=== PATIENT | male | born 2000 | race Caucasian/White ===

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

== ENCOUNTER 2019-05-11 14:08 | Emergency (ER) | payer BC, MEDICAID ==
[~2019-05-11] VITALS: Ht 165.1 cm; Wt 57.7 kg
[2019-05-11 14:08] VITALS: BP 118/70
[~2019-05-11 14:08] MED LIST: DULE200A IN; MULT1CHW26 PO; PROT1TAB2 PO; SING10TA32 PO; TUMS500C PO; ZYRT10CA PO
[2019-05-11] MEDS ORDERED: ECON1CRE36 TOP (14:42)
== END 2019-05-11 14:50 | disposition home or self-care (01) ==
LOC: M ED 14:08
DX: B35.4 Tinea corporis (principal)

== ENCOUNTER 2019-07-04 17:45 | Inpatient (IN) | payer BC ==
[~2019-07-04] VITALS: Ht 167.6 cm; Wt 52.5 kg
[~2019-07-04 17:45] MED LIST changes: +ECON1CRE8 TOP
[2019-07-04] MEDS ORDERED: ALBU8.5H PO (18:04)
[2019-07-04 18:54] LABS: HEMATOCRIT 50.8 % (42.0-52.0); HEMOGLOBIN 16.6 g/dl (13.5-17.5); MEAN CORPUSCULAR HEMOGLOBIN 28.9 pg (27.0-33.0); MEAN CORPUSCULAR HGB CONC 32.7 g/dl (32.0-36.5); MEAN CORPUSCULAR VOLUME 88.5 fl (80.0-96.0); PLATELET COUNT, AUTOMATED 238 10^3/uL (150-450); RED BLOOD COUNT 5.74 10^6/uL (4.30-6.10); WHITE BLOOD COUNT 8.6 10^3/uL (4.0-10.0)
[2019-07-04] MEDS ORDERED: AQUAOIN12 TOP (19:02)
[2019-07-04 19:30] LABS: ACETAMINOPHEN LEVEL < 2.0 UG/ML (10.0-30.0); ALBUMIN 4.6 GM/DL (3.2-5.2); ALT/SGPT 14 U/L (12-78); AMPHETAMINES LEVEL URINE NEGATIVE (NEGATIVE); BARBITURATES URINE NEGATIVE (NEGATIVE); BENZODIAZEPINES URINE NEGATIVE (NEGATIVE); BILIRUBIN,DIRECT 0.1 MG/DL (0.0-0.2); BILIRUBIN,TOTAL 0.4 MG/DL (0.2-1.0); BLOOD UREA NITROGEN 11 MG/DL (7-18); CALCIUM LEVEL 9.2 MG/DL (8.5-10.1); CANNABINOIDS URINE POSITIVE (NEGATIVE); CARBON DIOXIDE LEVEL 28 MEQ/L (21-32); CHLORIDE LEVEL 105 MEQ/L (98-107); COCAINE METABOLITE URINE NEGATIVE (NEGATIVE); CREATININE FOR GFR 0.75 MG/DL (0.70-1.30); ETHYL ALCOHOL (ETHANOL) 0.003 % (0.000-0.010); GLUCOSE, FASTING 86 MG/DL (70-100); METHADONE URINE NEGATIVE (NEGATIVE); OPIATES URINE NEGATIVE (NEGATIVE); PHENCYCLIDINE URINE NEGATIVE (NEGATIVE); POTASSIUM SERUM 3.9 MEQ/L (3.5-5.1); SALICYLATE LEVEL < 1.7 MG/DL (5.0-30.0); SODIUM LEVEL 140 MEQ/L (136-145); TOTAL PROTEIN 8.1 GM/DL (6.4-8.2)
[2019-07-04] MEDS: CLOTRIMAZOLE 1% TOPICAL CREAM 30GM TOP SCH (19:30)
[2019-07-04] MEDS ORDERED: MOM 30ML SUSPENSION UDC PO PRN (20:15)
[2019-07-04] MEDS ORDERED: ACETAMINOPHEN TAB 650MG DOSE (2X325MG) PO PRN (20:15)
[2019-07-04] MEDS ORDERED: MAALOX 30 ML SUSP *UDC PO PRN (20:15)
[2019-07-04 21:02] VITALS: BP 118/80
[2019-07-04] MEDS: traZODone 50 MG TAB PO PRN (22:39)
[2019-07-05 06:21] VITALS: BP 144/74
[2019-07-05] MEDS: CLOTRIMAZOLE 1% TOPICAL CREAM 30GM TOP SCH ×3 (09:00→21:50)
--- NOTE | 2019-07-05 10:41 | MHHPEPDOC ---
General Date Of Admission: Jul 04, 2019 Legal Status: 9.39 Chief Complaint "I was just depressed, but I would never actually kill myself." History of Present Illness HISTORY OF THE PRESENT ILLNESS: Patient is a 18 -year-old , male, with no previous psych history who brought in to ED by PD on after pt posted a picture on [employer] with a comment stating he wanted to end his existence causing his sister to text pt's mother who called the police. Pt in the Ed stated "I was just depressed, but I would never actually kill myself." Pt reflected on his life in the ED and stated he's been getting increasingly depressed and that caused him to post "I want to end my fucking existence" on [employer] chat. Per ED, pt's sister continued to reach out to the pt and he continued to state he wanted to . Pt stated he's been feeling depressed lately due to being unemployed and living with his Grandmother. Pt admitted to ongoing relationship problems with his mother that is also affecting his mood and caused him to become upset on day of admission per ED. Pt stated in ED "I am too scared to actually kill myself." Per ED, [facility] stated that pt had said "I would never kill myself while at my grandmother's b/c I wouldn't want her to have to clean up the mess" when they picked him up. Psychiatric Review of Systems Depression (2 or more weeks): depressed mood, feelings of worthlesness, difficulty concentrating, suicidal thoughts Usly (4 or more days of): denies Psychosis: denies PTSD: denies Anxiety: situational anxiety, stressor related anxiety Anxiety/ 6 months or more of: restlessness, keyed up, difficulty concentrating, irritability Past Psychiatric History Previous Psychiatric Diagnosis: denies. Previous Psychiatric Admissions: denies Suicide Attempts: denies Psychiatric Follow-up: denies Psychiatric medications: denies Past Medical History Medical Problems healthy adult Head Injury: No Seizures: No Hospitalizations: No Surgeries: No Family Medical/Psychiatric HX Medical Problems denies Psychiatric Disorders: No Addiction: No Suicide Attemps/Completions: No Addiction History nicotine (daily use), other (utox pos cannabis) Social History Childhood: Born and raised in [place], 2 parents home, 1 older sister. Pt states he has a poor relationship with his mother but a good relationship with his father, sister, and grandmother Abuse/Trauma:denies Current Living Situation: lives with Grandmother in [place] Education: high school grad Employment: unemployed, financially supported by his parents Social Support: Sister, parents, grandmother Legal: denies Marital: single, never , no kids. Mental Status Examination General Appearance: well groomed, appears stated age, hospital scubs/clothing Build: average, other (small) Demeanor: average Eye Contact: average Activity: average, anxious Behavior: cooperative Speech: clear, spontaneous, reg/rate,rhythm,volume, other (has a lisp) Mood: euthymic, angry Mood "I'm fine" Affect: full, congruent, anxious Thought Process: logical/linear, concrete (slightly possibly due to coming across as immature for his age), intact Thought Content (Delusions): none reported, denies SI, HI, AVH Thought Content (Other): none reported, appropriate Thought Content (Aggressive): none reported Perception (Hallucinations): none reported Perception (Other): none reported Cognition (Impairment of): none reported Cognition(Intelligence Est.): average Oriented: Awake, Alert, Oriented times three Insight: fair Judgment: Fair Psychosis: Denies Diagnoses Adjustment d/o with depression and anxiety cannabis use d/o A-FIB/CHADSVASC A-FIB History Current/History of A-Fib/PAF?: No Assessment Pt seen and states he's here b/c he posted "end my fucking existence" and a story on [employer] chat. States he didn't think it would mean suicide and wasn't meaning he was suicide. States he meant he wanted "God" to end his existence like just let him , passive SI. States he doesn't feel like he doesn't have anything to live for like no job or appt but states he doesn't want to . States he more or less post the comment b/c he wanted some form of something to end his pain. He endorses depressed mood. Denies he was looking for attention. States he carries a knife for protection that if he wanted he could use to harm himself but doesn't want to harm himself so he doesn't use it. States he feels depressed occasionally due to situations like yesterday when the cable was out and he didn't realize it was everywhere, thought it was just his. Denies he self harms. Denies he feels needs to start an antidepressant but is open to being referred outpatient therapy as is finding groups therapy beneficial here (did [employer] [employer] yesterday and doesn't want to miss art group today) to help him with his mood and ability to cope with situations he doesn't like. Denies current SI/HI, hallucinations, delusions. Feels safe ehre. Initial Treatment Plan 1. Patient was admitted on a status. 2. Complete history was obtained. 3. With patients permission, family will be contacted and database will be expanded. 4. Patients medication regimen will be reviewed and changed accordingly. 5. Patient will be provided with protected environment. 6. Patient will be treated with individual, group, and milieu therapies. 7. Patient will receive supportive psych-education. 8. Discharge planning will commence immediately. 9. Outpatient follow-up treatment will be strongly recommended. 10. The initial treatment plan will focus initially on: * Depression. * Risk for suicide. 11. monitor safety ESTIMATED LENGTH OF STAY: 3-5 DAYS. TIME SPENT COUNSELING AND COORDINATING INITIAL CARE: 60 minutes. Vital Signs Vital Signs Date Time Temp Pulse Resp B/P (MAP) Pulse Ox O2 Delivery O2 Flow Rate FiO2 07/05/19 08:00 Room Air 07/05/19 06:21 98.8 50 18 144/74 (97) 07/04/19 21:02 97 Laboratory Data 24[facility] Labs Laboratory Tests 2 07/04/19 18:35: Nucleated Red Blood Cells % (auto) 0.0, Anion Gap 7L, Calcium Level 9.2, Total Bilirubin 0.4, Direct Bilirubin 0.1, Aspartate Amino Transf (AST/SGOT) 10, Alanine Aminotransferase (ALT/SGPT) 14, Alkaline Phosphatase 54, Total Protein 8.1, Albumin 4.6, Albumin/Globulin Ratio 1.31, Thyroid Stimulating Hormone (TSH) 1.200, Salicylates Level < 1.7L, Urine Opiates Screen NEGATIVE, Urine Methadone Screen NEGATIVE, Acetaminophen Level < 2.0L, Urine Barbiturates Screen NEGATIVE, Urine Phencyclidine Screen NEGATIVE, Urine Amphetamines Screen NEGATIVE, Urine Benzodiazepines Screen NEGATIVE, Urine Cocaine Metabolite Screen NEGATIVE, Urine Cannabinoids Screen POSITIVEH, Ethyl Alcohol Level 0.003 CBC/BMP Laboratory Tests 07/04/19 18:35 Medications Scheduled PRN Albuterol Sulfate (Albuterol Sulfate Hfa) 8.5 Gm Hfa.aer.ad, 2 PUFF PO Q4H PRN for SOB/WHEEZING, (Reported) Petrolatum,White (Aquaphor with Natural Healing) 50 Gm Oint...g., 1 APPLIC TOP DAILY PRN for ITCHING, (Reported) APPLY TO GROIN Allergies Coded Allergies: No Known Allergies (Verified , 07/04/19) ANDREA NAVAS DO Jul 05, 2019 10:16 am
--- NOTE | 2019-07-05 13:32 | HPEPDOC ---
General Date of Admission Jul 04, 2019 at 20:14 Date of Service: Jul 05, 2019 Chief Complaint The patient is a 18-year-old male admitted with a reason for visit of Unspecified Depressive D/O. Source: Patient Exam Limitations: No limitations History of Present Illness 18 yo man with a history of mild asthma, cigar smoking, and recent 2 month history jock itch for which he was prescribed a topical antifungal but could not afford the topical cream and has managed it with regular body lotion with interval worsening of the ringworm, who is admitted to the [facility] for depressed mood after he mentioned wanting to end his life on snapchat and confirmed it to his sister. He reports being frustrated with living with his grandmother and not being able to get a job. He reports no actual plan or "real intention" to end his life but is quite depressed by his current situation. In the ED, he was hemodynamically stable with normal CBC, BMP and tox was positive for MJ. Medicine is now being consulted for medical evaluation. Home Medications Scheduled PRN Albuterol Sulfate (Albuterol Sulfate Hfa) 8.5 Gm Hfa.aer.ad, 2 PUFF PO Q4H PRN for SOB/WHEEZING, (Reported) Petrolatum,White (Aquaphor with Natural Healing) 50 Gm Oint...g., 1 APPLIC TOP DAILY PRN for ITCHING, (Reported) APPLY TO GROIN Allergies Coded Allergies: No Known Allergies (Verified , 07/04/19) Past Medical History Medical History cigar smoker for 1 year and episodic cigarette smoker mild asthma jock itch - ongoing depression Family History Significant Family History: No pertinent family hx Social History * Smoker: current smoker Alcohol: Denies Drugs: marijuana Recent Travel/Sick Contacts: Denies: Recent travel, Recent sick contacts Psychosocial History: Decreased mood, Depression, Suicidal thoughts Lives with his grandmother, is unemployed A-FIB/CHADSVASC A-FIB History Current/History of A-Fib/PAF?: No Current PO Anticoag Therapy: No Age/Risk Factor Scoring CHADSVASC: CHADSVASC Response (Comments) Value Age Risk Factor Age < 65 years old 0 Gender Risk Factor Male 0 Hx of CHF No 0 Hx of HTN No 0 Hx of Stroke/TIA/or VTE No 0 Hx of Diabetes No 0 Hx of Vascular Disease No 0 Total 0 Treatment Treatment ordered: NONE Reason Anticoagulant not given: Not indicated/[id number] Review of Systems Constitutional: Denies: Chills, Fever, Night Sweats Eyes: Denies: Pain, Vision change ENT: Denies: Head Aches, Ear Pain, Dysphagia Skin: Reports: Rash (has itchy rash on L medial thigg); Denies: Lesions, Breakdown Pulmonary: Denies: Dyspnea, Cough Cardiovascular: Denies: Chest Pain, Palpitations, Orthopnea, Paroxysmal Noc. Dyspnea, Lt Headedness Gastrointestinal: Denies: Nausea, Vomiting, Abdominal Pain, Diarrhea Genitourinary: Denies: Dysuria, Frequency, Incontinence, Retention Hematologic: Denies: Bruising, Bleeding Excessively Endocrine: Denies: Polydipsia, Polyphagia, Polyuria, Heat Intolerance, Cold Intolerance, Other Endocrine Sx Musculoskeletal: Denies: Neck Pain, Back Pain, Joint Pain, Muscle Pain, Spasms Neurological: Denies: Weakness, Numbness, Change in speech, Confusion Psych: Reports: Depression Physical Examination Eye Exam: Positive: PERRLA, Conjunctiva & lids normal, EOMI; Negative: Sclera icteric ENT Exam: Positive: Atraumatic, Mucous membr. moist/pink, Other ENT (poor dentition) Neck Exam: Positive: Supple; Negative: JVD, thyromegaly Chest Exam: Positive: Clear to auscultation, Normal air movement Heart Exam: Positive: Rate Normal, Regular Rhythm, Normal S1, Normal S2; Negative: Murmurs, Rubs Abdomen Exam: Positive: Normal bowel sounds, Soft; Negative: Tenderness, Hepatospenomegaly Extremity Exam: Positive: Normal pulses; Negative: Clubbing, Cyanosis, Edema Skin Exam: Positive: Rash (large erythematous round ringworm with raised border on medial L thigh proximal to his scrotum, with clear borders.) Neuro Exam: Positive: Normal Gait, Normal Speech, Cranial Nerves 3-12 NL, Reflexes 2+ Psych Exam: Positive: Mental status NL, Mood NL, Oriented x 3 Vital Signs Vital Signs Date Time Temp Pulse Resp B/P (MAP) Pulse Ox O2 Delivery O2 Flow Rate FiO2 07/05/19 08:00 Room Air 07/05/19 06:21 98.8 50 18 144/74 (97) 07/04/19 21:02 97 Laboratory Data Labs 24H Laboratory Tests 2 07/04/19 18:35: Nucleated Red Blood Cells % (auto) 0.0, Anion Gap 7L, Calcium Level 9.2, Total Bilirubin 0.4, Direct Bilirubin 0.1, Aspartate Amino Transf (AST/SGOT) 10, Alanine Aminotransferase (ALT/SGPT) 14, Alkaline Phosphatase 54, Total Protein 8.1, Albumin 4.6, Albumin/Globulin Ratio 1.31, Thyroid Stimulating Hormone (TSH) 1.200, Salicylates Level < 1.7L, Urine Opiates Screen NEGATIVE, Urine Methadone Screen NEGATIVE, Acetaminophen Level < 2.0L, Urine Barbiturates Screen NEGATIVE, Urine Phencyclidine Screen NEGATIVE, Urine Amphetamines Screen NEGATIVE, Urine Benzodiazepines Screen NEGATIVE, Urine Cocaine Metabolite Screen NEGATIVE, Urine Cannabinoids Screen POSITIVEH, Ethyl Alcohol Level 0.003 CBC/BMP Laboratory Tests 07/04/19 18:35 Assessment/Plan Very pleasant 18 yo man with ongoing psychosocial stressors with difficulty secu ring a job and independent housing, with ongoing tinea cruris who is admitted to the [facility] after expressing thought of suicide on social media. Tinea cruris: -Was already placed on clotrimazole cream BID Asthma: no evidence of ongoing exacerbation or symptoms -may offer PRN albuterol inhaler as indicated for wheezing or SOB Depression with suicidality: -Appears to already be doing much better, management per psychiatry team Medicine will sign off at this time. Please reconsult for any medical concerns. Plan / VTE VTE Prophylaxis Ordered?: No VTE Exclusion Mechanical Proph: Low Risk for VTE VTE Exclusion Pharmacological: At Low Risk for VTE RIRI PEREZ MD Jul 05, 2019 13:32
[2019-07-05 16:04] VITALS: BP 117/58
[2019-07-05] MEDS: traZODone 50 MG TAB PO PRN (21:50)
[2019-07-05] MEDS ORDERED: MIRTAZAPINE 15 MG TAB PO ONE (23:20)
[2019-07-06 06:45] VITALS: BP 114/57
[2019-07-06] MEDS: CLOTRIMAZOLE 1% TOPICAL CREAM 30GM TOP SCH ×2 (09:21→21:30)
--- NOTE | 2019-07-06 10:07 | MHIPNPDOC ---
[facility] Progress Note Progress Note DATE OF SERVICE: 07/06/19 HISTORY: Patient is a 18 -year-old , male, with no previous psych history who brought in to ED by PD on after pt posted a picture on [employer] chat with a comment stating he wanted to end his existence causing his sister to text pt's mother who called the police. Pt in the Ed stated "I was just depressed, but I would never actually kill myself." Pt reflected on his life in the ED and stated he's been getting increasingly depressed and that caused him to post "I want to end my fucking existence" on [employer] chat. Per ED, pt's sister continued to reach out to the pt and he continued to state he wanted to . Pt stated he's been feeling depressed lately due to being unemployed and living with his Grandmother. Pt admitted to ongoing relationship problems with his mother that is also affecting his mood and caused him to become upset on day of admission per ED. Pt stated in ED "I am too scared to actually kill myself." Per ED, [facility] stated that pt had said "I would never kill myself while at my grandmother's b/c I wouldn't want her to have to clean up the mess" when they picked him up. Pt seen and states he's here b/c he posted "end my fucking existence" and a story on [employer] chat. States he didn't think it would mean suicide and wasn't meaning he was suicide. States he meant he wanted "God" to end his existence like just let him , passive SI. States he doesn't feel like he doesn't have anything to live for like no job or appt but states he doesn't want to . States he more or less post the comment b/c he wanted some form of something to end his pain. He endorses depressed mood. Denies he was looking for attention. States he carries a knife for protection that if he wanted he could use to harm himself but doesn't want to harm himself so he doesn't use it. States he feels depressed occasionally due to situations like yesterday when the cable was out and he didn't realize it was everywhere, thought it was just his. Denies he self harms. Denies he feels needs to start an antidepressant but is open to being referred outpatient therapy as is finding groups therapy beneficial here (did [employer] yesterday and doesn't want to miss art group today) to help him with his mood and ability to cope with situations he doesn't like. Denies current SI/HI, hallucinations, delusions. Feels safe here. VITAL SIGNS: See below. NEW TEST RESULTS:See below. CURRENT MEDICATIONS: See below. MENTAL STATUS EXAMINATION: General Appearance: well groomed, appears stated age, hospital scubs/clothing Build: average, other (small) Demeanor: average Eye Contact: average Activity: average, anxious Behavior: cooperative Speech: clear, spontaneous, reg/rate,rhythm,volume, other (has a lisp) Mood: euthymic Mood "better" Affect: full, congruent, less anxious Thought Process: logical/linear, concrete (slightly possibly due to coming across as immature for his age), intact Thought Content (Delusions): none reported, denies SI, HI, AVH Thought Content (Other): none reported, appropriate Thought Content (Aggressive): none reported Perception (Hallucinations): none reported Perception (Other): none reported Cognition (Impairment of): none reported Cognition(Intelligence Est.): average Oriented: Awake, Alert, Oriented times three Insight: fair Judgment: Fair Psychosis: Denies DIAGNOSES: Adjustment d/o with depression and anxiety cannabis use d/o ASSESSMENT:Pt seen and states that his mood is "better" today. States he slept well last night. States he attended all the groups yesterday and really enjoyed doing [employer], art group, and movie group. Plans to continue to attend all of them today. Continues to lack understanding that if he wasn't feeling suicidal or wanting to harm himself he should no have posted on [employer] "I want to end my existence" saying he didn't really mean it and doesn't know why every one (his family) thought he did. Explained to him that a message like that can one be taken one way by others and that it makes his safety a concern. Seemed to understand more. He denies SI/HI, hallucinations, delusions. Pt feels safe here. MANAGEMENT PLAN: d/c planning tomorrow no meds TIME SPENT: 30 minutes. Vital Signs Vital Signs Date Time Temp Pulse Resp B/P (MAP) Pulse Ox O2 Delivery O2 Flow Rate FiO2 07/06/19 06:45 98.0 60 14 114/57 (76) Room Air 07/04/19 21:02 97 Current Medications Current Medications Medications (Trade) Dose Ordered Sig/Karma Route PRN Reason Start Time Stop Time Status Last Admin Dose Admin Acetaminophen (Tylenol Tab) 650 mg Q6HP PRN PO HEADACHE or DISCOMFORT 07/04/19 20:15 Al Hydrox/Mg Hydrox/Simethicone (Mylanta) 30 ml Q4HP PRN PO HEARTBURN/INDIGESTION 07/04/19 20:15 Clotrimazole (Lotrimin) 1 dose BID TOP 07/04/19 21:00 07/05/19 09:34 DC 07/04/19 19:30 Clotrimazole (Lotrimin) 1 dose BID TOP 07/05/19 09:00 07/06/19 09:21 Home Med (Med Rec Complete!) ASDIRECTED XX 07/04/19 19:15 07/04/19 19:05 DC Magnesium Hydroxide (Milk Of Magnesia) 30 ml DAILYPRN PRN PO CONSTIPATION 07/04/19 20:15 Trazodone HCl (Desyrel) 50 mg QHSP PRN PO INSOMNIA 07/04/19 20:15 07/05/19 21:50 Allergies Coded Allergies: No Known Allergies (Verified , 07/04/19) ANDREA NAVAS DO Jul 06, 2019 10:07 am
[2019-07-06 16:17] VITALS: BP 116/67
[2019-07-06] MEDS: traZODone 50 MG TAB PO PRN (22:24)
[2019-07-07 06:24] VITALS: BP 136/58
--- NOTE | 2019-07-07 08:46 | MHDSPDOC ---
[facility] Discharge Summary Discharge Summary DATE OF ADMISSION: Jul 04, 2019 at 8:14 pm DATE OF DISCHARGE: Jul 07, 2019 DISCHARGE DIAGNOSES: Adjustment d/o with depression and anxiety cannabis use d/o REASON FOR ADMISSION: Patient is a 18 -year-old , male, with no previous psych history who brought in to ED by PD on after pt posted a picture on [employer] with a comment stating he wanted to end his existence causing his sister to text pt's mother who called the police. Pt in the Ed stated "I was just depressed, but I would never actually kill myself." Pt reflected on his life in the ED and stated he's been getting increasingly depressed and that caused him to post "I want to end my fucking existence" on [employer] chat. Per ED, pt's sister continued to reach out to the pt and he continued to state he wanted to . Pt stated he's been feeling depressed lately due to being unemployed and living with his Grandmother. Pt admitted to ongoing relationship problems with his mother that is also affecting his mood and caused him to become upset on day of admission per ED. Pt stated in ED "I am too scared to actually kill myself." Per ED, [facility] stated that pt had said "I would never kill myself while at my grandmother's b/c I wouldn't want her to have to clean up the mess" when they picked him up. Pt seen and states he's here b/c he posted "end my fucking existence" and a story on [employer] chat. States he didn't think it would mean suicide and wasn't meaning he was suicide. States he meant he wanted "God" to end his existence like just let him , passive SI. States he doesn't feel like he doesn't have anything to live for like no job or appt but states he doesn't want to . States he more or less post the comment b/c he wanted some form of something to end his pain. He endorses depressed mood. Denies he was looking for attention. States he carries a knife for protection that if he wanted he could use to harm himself but doesn't want to harm himself so he doesn't use it. States he feels depressed occasionally due to situations like yesterday when the cable was out and he didn't realize it was everywhere, thought it was just his. Denies he self harms. Denies he feels needs to start an antidepressant but is open to mariusz manuel referred outpatient therapy as is finding groups therapy beneficial here (did [employer] yesterday and doesn't want to miss art group today) to help him with his mood and ability to cope with situations he doesn't like. Denies current SI/HI, hallucinations, delusions. Feels safe here. CONSULTANTS INVOLVED: none TREATMENT AND PROGRESS ON THE UNIT : Pt was admitted to [facility], seen for psychiatric assessment and not started on any antidepressant medications as he wanted to thy outpatient therapy as treatment first. He was provided trazodone 50mg qhs prn insomnia. He attended all the groups daily during his stay and really enjoyed them and found them helpful. His symptoms improved with treatment. On day of discharge he denied depression, anxiety, insomnia, SI/HI, hallucinations, delusions. He was discharged home to his parent's house with follow-up at [facility]. He felt safe for discharge. DISCHARGE ASSESSMENT: Pt seen and states that his mood is "good" and that he's looking forward to going home today. States he slept well last night. States he attended all the groups yesterday and really enjoyed them, learned coping skills to use in the future in them. He denies depression, anxiety, insomnia, SI/HI, hallucinations, delusions. Pt feels safe to d/c home to his parent's house today MENTAL STATUS EXAMINATION ON DISCHARGE: General Appearance: well groomed, appears stated age, own clothing Build: average, other (small) Demeanor: average Eye Contact: average Activity: average, anxious Behavior: cooperative Speech: clear, spontaneous, reg/rate,rhythm,volume, other (has a lisp) Mood: euthymic, full range Mood "good" Affect: full, congruent Thought Process: logical/linear, concrete (slightly possibly due to coming across as immature for his age), intact Thought Content (Delusions): none reported, denies SI, HI, AVH Thought Content (Other): none reported, appropriate Thought Content (Aggressive): none reported Perception (Hallucinations): none reported Perception (Other): none reported Cognition (Impairment of): none reported Cognition(Intelligence Est.): average Oriented: Awake, Alert, Oriented times three Insight: good Judgment: good Psychosis: Denies MEDICATIONS ON DISCHARGE: none PLAN/FOLLOWUP ARRANGEMENTS: D/c home with follow-up at [facility]. The amount of time spent in the coordination of care for this patient was approximately 30 minutes. Vital Signs/I&Os Vital Signs Date Time Temp Pulse Resp B/P (MAP) Pulse Ox O2 Delivery O2 Flow Rate FiO2 07/07/19 06:24 98.0 54 14 136/58 (84) 07/06/19 16:17 Room Air 07/04/19 21:02 97 Medications Scheduled PRN Albuterol Sulfate (Albuterol Sulfate Hfa) 8.5 Gm Hfa.aer.ad, 2 PUFF PO Q4H PRN for SOB/WHEEZING, (Reported) Petrolatum,White (Aquaphor with Natural Healing) 50 Gm Oint...g., 1 APPLIC TOP DAILY PRN for ITCHING, (Reported) APPLY TO GROIN Allergies Coded Allergies: No Known Allergies (Verified , 07/04/19) ANDREA NAVAS DO Jul 07, 2019 8:46 am
[2019-07-07] MEDS: CLOTRIMAZOLE 1% TOPICAL CREAM 30GM TOP SCH (09:32)
== END 2019-07-07 11:20 | disposition home or self-care (01) | DRG 755 ==
LOC: M ED 17:45 → M ED INP 20:14 → M PSY 20:44
PROVIDERS: ADMIT Psychiatry & Neurology Psychiatry; ATTEND Psychiatry & Neurology Psychiatry
DX: F43.23 Adjustment disorder with mixed anxiety and depressed mood (principal); R45.851 Suicidal ideations; F12.90 Cannabis use, unspecified, uncomplicated; F17.210 Nicotine dependence, cigarettes, uncomplicated; B35.6 Tinea cruris; J45.909 Unspecified asthma, uncomplicated

== ENCOUNTER 2019-10-20 11:50 | Emergency (ER) | payer BC, MEDICAID ==
[~2019-10-20] VITALS: Ht 165.1 cm; Wt 51.9 kg
[~2019-10-20 11:50] MED LIST changes: +ALBU8.5H PO; +AQUAOIN12 TOP
[2019-10-20] MEDS ORDERED: NAPR-837 PO (14:05)
[2019-10-20] MEDS ORDERED: AUGM875T28 PO (14:05)
[2019-10-20 14:09] VITALS: BP 109/65
--- NOTE | 2019-10-20 16:51 | REP ---
LEFT ELBOW, FOUR VIEWS: There is no evidence of an acute fracture, dislocation or intrinsic bone disease. IMPRESSION: No fracture or dislocation. Electronically Signed by Nima Turner MD 10/21/2019 09:17 A
== END 2019-10-20 14:23 | disposition home or self-care (01) ==
LOC: M ED 11:50
DX: S53.402A Unspecified sprain of left elbow, initial encounter (principal); S41.152A Open bite of left upper arm, initial encounter; Y04.1XXA Assault by human bite, initial encounter; Y92.098 Other place in other non-institutional residence as the place of occurrence of the external cause; J45.909 Unspecified asthma, uncomplicated; F41.9 Anxiety disorder, unspecified; F17.200 Nicotine dependence, unspecified, uncomplicated

== ENCOUNTER 2021-01-03 11:17 | Emergency (ER) | payer BC, MEDICAID ==
[~2021-01-03] VITALS: Ht 167.6 cm; Wt 50.2 kg
[~2021-01-03 11:17] MED LIST changes: +AUGM875T28 PO; +NAPR-837 PO
[2021-01-03 11:18] VITALS: BP 125/68
[2021-01-03 13:54] LABS: RSV AMPLIFICATION NEGATIVE (NEGATIVE)
== END 2021-01-03 16:15 | disposition left against medical advice (07) ==
LOC: M ED 11:17
DX: Z53.29 Procedure and treatment not carried out because of patient's decision for other reasons (principal)

== ENCOUNTER → 2021-04-27 | Outpatient (REF) | payer BC, MEDICAID | LOC: M LAB REF 16:54 | PROVIDERS: ATTEND Physician Assistant | DX: R50.9 Fever, unspecified (principal) ==

== ENCOUNTER 2023-05-25 08:48 | Emergency (ER) | payer BC, MEDICAID ==
[~2023-05-25] VITALS: Ht 167.6 cm; Wt 50.7 kg
[~2023-05-25 08:48] MED LIST changes: -DULE200A IN; +MOME13HF7 IN; +MONT-5 PO; -SING10TA32 PO
[2023-05-25 13:16] LABS: HEMATOCRIT 44.9 % (42.0-52.0); HEMOGLOBIN 15.8 g/dl (13.5-17.5); MEAN CORPUSCULAR HEMOGLOBIN 32.2 pg (27.0-33.0); MEAN CORPUSCULAR HGB CONC 35.2 g/dl (32.0-36.5); MEAN CORPUSCULAR VOLUME 91.4 fl (80.0-96.0); PLATELET COUNT, AUTOMATED 260 10^3/uL (150-450); RED BLOOD COUNT 4.91 10^6/uL (4.30-6.10); WHITE BLOOD COUNT 16.3 10^3/uL (4.0-10.0)
[2023-05-25] MEDS ORDERED: ISOVUE-370 76% 100ML VIAL As Ordered ONE (13:35)
[2023-05-25] MEDS ORDERED: KETOROLAC 30 MG/ML 1ML VIAL IV ONE (13:40)
[2023-05-25] MEDS ORDERED: NS 1,000 ML IV ONE (14:40)
[2023-05-25 16:05] VITALS: BP 137/73; TEMP 99.9; O2SAT 97
== END 2023-05-25 16:08 | disposition short-term general hospital (02) ==
LOC: M ED 08:48
DX: S02.602A Fracture of unspecified part of body of left mandible, initial encounter for closed fracture (principal); Y92.9 Unspecified place or not applicable; Y93.9 Activity, unspecified; Y99.9 Unspecified external cause status; Z79.51 Long term (current) use of inhaled steroids; X58.XXXA Exposure to other specified factors, initial encounter
CPT/HCPCS: 70487; 73030; 73502; 80047; 85027; 96361; 96374; 99284; J1885; Q9967

== ENCOUNTER → 2023-10-16 | Outpatient (REF) | payer BC ==
[2023-10-16 18:10] LABS: THYROID STIMULATING HORMONE 0.654 uIU/ML (0.55-4.78)
[2023-10-16 18:11] LABS: TOTAL 25(OH) VITAMIN D 17.2 NG/ML (20.0-100.0)
[2023-10-16 18:12] LABS: ALBUMIN 4.3 G/DL (3.2-5.2); ALKALINE PHOSPHATASE 52 U/L (46-116); ALT/SGPT 21 U/L (7.0-40); AST/SGOT 13 U/L (<34); BILIRUBIN,TOTAL 0.5 MG/DL (0.3-1.2); BLOOD UREA NITROGEN 7 MG/DL (9-23); CALCIUM LEVEL 9.2 MG/DL (8.5-10.1); CARBON DIOXIDE LEVEL 28 MMOL/L (20-31); CHLORIDE LEVEL 105 MMOL/L (98-107); CHOLESTEROL LEVEL 121 MG/DL (<200); CHOLESTEROL RISK RATIO 2.02 (<5); CREATININE FOR GFR 0.63 MG/DL (0.70-1.30); GLOMERULAR FILTRATION RATE > 60.0 (>60); GLUCOSE, FASTING 71 MG/DL (60-100); HDL CHOLESTEROL 59.7 MG/DL (>40); LDL CHOLESTEROL 45.3 MG/DL (<100); NON-HDL-C 61.3 MG/DL; POTASSIUM SERUM 4.6 MMOL/L (3.5-5.1); SODIUM LEVEL 140 MMOL/L (136-145); TOTAL PROTEIN 7.2 G/DL (5.7-8.2); TRIGLYCERIDES LEVEL 80 MG/DL (<150); VITAMIN B12 LEVEL 598 PG/ML (211-911)
== END ==
LOC: M LAB REF 16:58
PROVIDERS: ATTEND Physician Assistant
DX: E55.9 Vitamin D deficiency, unspecified (principal); Z13.29 Encounter for screening for other suspected endocrine disorder; F10.10 Alcohol abuse, uncomplicated

== ENCOUNTER → 2023-11-14 | Outpatient (REF) | payer BC ==
[2023-11-14 17:28] LABS: BASO # 0.1 10^3/uL (0.0-0.2); BASO % 1.6 % (0.0-1.0); EOS # 0.3 10^3/uL (0.0-0.5); EOS % 3.8 % (0.0-3.0); HEMATOCRIT 44.2 % (42.0-52.0); HEMOGLOBIN 15.3 g/dl (13.5-17.5); LYMPH # 1.8 10^3/uL (1.5-5.0); LYMPH % 20.5 % (24.0-44.0); MEAN CORPUSCULAR HEMOGLOBIN 30.8 pg (27.0-33.0); MEAN CORPUSCULAR HGB CONC 34.6 g/dl (32.0-36.5); MEAN CORPUSCULAR VOLUME 89.1 fl (80.0-96.0); MONO # 0.8 10^3/uL (0.0-0.8); MONO % 8.7 % (2.0-8.0); NEUTROPHILS # 5.7 10^3/uL (1.5-8.5); NEUTROPHILS % 65.2 % (36.0-66.0); PLATELET COUNT, AUTOMATED 188 10^3/uL (150-450); RED BLOOD COUNT 4.96 10^6/uL (4.30-6.10); WHITE BLOOD COUNT 8.7 10^3/uL (4.0-10.0)
[2023-11-14 17:59] LABS: PERCENT SATURATION 32.1 % (19.7-50.0)
[2023-11-14 18:01] LABS: FERRITIN 89.9 NG/ML (10.5-307.3)
== END ==
LOC: M LAB REF 16:38
PROVIDERS: ATTEND Physician Assistant
DX: D64.9 Anemia, unspecified (principal)

== ENCOUNTER 2024-12-04 12:57 | Emergency (ER) | payer BC ==
[~2024-12-04] VITALS: Ht 167.6 cm; Wt 65.5 kg
[2024-12-04 14:21] VITALS: BP 124/79; TEMP 96.9; O2SAT 100
== END 2024-12-04 14:30 | disposition home or self-care (01) ==
LOC: M ED 12:57
DX: S06.0X0A Concussion without loss of consciousness, initial encounter (principal); Y92.9 Unspecified place or not applicable; Y93.9 Activity, unspecified; Y99.9 Unspecified external cause status; W19.XXXA Unspecified fall, initial encounter; J45.909 Unspecified asthma, uncomplicated; F41.9 Anxiety disorder, unspecified; Z79.51 Long term (current) use of inhaled steroids